=== PATIENT | female | born 1940 | race Caucasian/White ===

== ENCOUNTER 2022-03-17 14:41 | Outpatient (CLI) | payer MEDICARE, BC, SELFPAY ==
[2022-03-17 14:40] LABS: Chloride* 103 mmol/L (96-114); Potassium* 4.2 mmol/L (3.6-5.1); Sodium* 138 mmol/L (135-149)
[2022-03-17 14:43] LABS: Blood Urea Nitrogen* 21 mg/dL (7-30); Calcium* 9.6 mg/dL (8.4-10.6); Carbon Dioxide* 28 mmol/L (20-32); Creatinine* 0.6 mg/dL (0.5-1.5); Estimated Glomerular Filt Rate 91 ml/min; Glucose* 112 mg/dL (60-115)
[2022-03-19 17:13] LABS: Cholesterol* 173 mg/dL (90-199)
[2022-03-19 17:14] LABS: HDL Cholesterol* 48 mg/dL (>=50); LDL Cholesterol Calculated 111 mg/dL (<100); Triglycerides* 72 mg/dL (40-149)
== END 2022-03-17 14:42 | disposition home or self-care (01) ==
PROVIDERS: PCP Internal Medicine; Visit Provider Internal Medicine
DX: I10 Essential (primary) hypertension (principal); E78.5 Hyperlipidemia, unspecified; E66.9 Obesity, unspecified; R73.03 Prediabetes
CPT/HCPCS: 80048; 80061

== ENCOUNTER 2022-07-02 14:53 | Outpatient (CLI) | payer MEDICARE, SELFPAY ==
--- NOTE | 2022-07-02 15:20 | CRLHL7_ITS ---
For Patients: As a result of the Cures Act, medical imaging exams and procedure reports are released immediately into your electronic medical record. You may view this report before your referring provider. If you have questions, please contact your health care provider. BILATERAL SCREENING MAMMOGRAM WITH COMPUTER-AIDED DETECTION AND TOMOSYNTHESIS TECHNIQUE: CC and MLO views were obtained. These mammographic images have been obtained using full-field digital technique. These mammographic images were interpreted with the benefit of computer-aided detection. Breast Tomosynthesis was used in this interpretation. COMPARISON FILM: 05/13/21; 04/19/20; 04/17/19. FINDINGS: There are scattered areas of fibroglandular density. IMPRESSION: There is no radiographic evidence for malignancy. ASSESSMENT: BI-RADS Category 1: Negative RECOMMENDATION: Routine screening mammogram in 1 year. A lay language report of this examination will be provided to the patient. Pawan Urbano M.D. Diagnostic Radiologist [email or web address] Transcribed: 12:33 p.m. PT/Dictated by: Pawan Urbano MD @ 07/03/2022 8:27:00 AM (Electronically Signed)
== END 2022-07-02 14:54 | disposition home or self-care (01) ==
LOC: MAMMO 14:56
PROVIDERS: PCP Internal Medicine; Visit Provider Internal Medicine
DX: Z12.31 Encounter for screening mammogram for malignant neoplasm of breast (principal)
CPT/HCPCS: 77063; 77067

== ENCOUNTER 2022-08-07 09:22 | Outpatient (RCR) | payer MEDICARE, SELFPAY | END 2023-02-03 23:59 | disposition home or self-care (01) | LOC: CCIC 09:22 | PROVIDERS: PCP Internal Medicine; Visit Provider Nurse Practitioner Family | DX: C50.912 Malignant neoplasm of unspecified site of left female breast (principal); Z17.0 Estrogen receptor positive status [ER+] | CPT/HCPCS: 99212; 99213 ==

== ENCOUNTER 2022-11-23 09:06 | Outpatient (CLI) | payer MEDICARE, SELFPAY | END 2022-11-23 09:07 | disposition home or self-care (01) | LOC: NFLDREF 11-24 11:00 | PROVIDERS: PCP Internal Medicine; Referring Provider Internal Medicine; Visit Provider Internal Medicine | DX: E78.5 Hyperlipidemia, unspecified (principal) | CPT/HCPCS: 80061 ==

== ENCOUNTER 2023-03-25 15:12 | Outpatient (CLI) | payer MEDICARE, SELFPAY | END 2023-03-25 15:13 | disposition home or self-care (01) | PROVIDERS: PCP Internal Medicine; Visit Provider Internal Medicine | DX: I10 Essential (primary) hypertension (principal); E78.5 Hyperlipidemia, unspecified; R73.03 Prediabetes | CPT/HCPCS: 80048; 80061 ==

== ENCOUNTER 2023-07-07 14:38 | Outpatient (CLI) | payer MEDICARE, SELFPAY ==
--- NOTE | 2023-07-07 15:00 | MM_ITS ---
Patient: ADRIAN KANG Facility:?[facility] Patient ID:?[id number] Site Patient ID:?[id number]. Site :?[id number] Study:?XRay-Breast Bilateral 3D W/CAD-07/07/2023 3:31:06 PM Ordering Physician:Isabel Quispe Final Report: BILATERAL SCREENING MAMMOGRAM WITH COMPUTER-AIDED DETECTION AND TOMOSYNTHESIS TECHNIQUE: CC and MLO views were obtained. These mammographic images have been obtained using full-field digital technique. These mammographic images were interpreted with the benefit of computer-aided detection. Breast Tomosynthesis was used in this interpretation. COMPARISON FILM: 07/02/22, 05/13/21, 04/19/20. FINDINGS: There are scattered areas of fibroglandular density. IMPRESSION: There is no radiographic evidence for malignancy. ASSESSMENT: BI-RADS Category 2: Benign RECOMMENDATION: Routine screening mammogram in 1 year. A lay language report of this examination will be provided to the patient. Miguel Angel Paulino M.D. Diagnostic/Nuclear Medicine Radiologist [email or web address] NELDA/sana R& Transcribed: 2:41 pm SP/Dictated by: Miguel Angel Paulino MD @ 07/08/2023 10:43:00 AM Signed by:iKka Paulino MD @07/08/2023 3:31:37 PM (Electronic Signature)
== END 2023-07-07 14:39 | disposition home or self-care (01) ==
LOC: MAMMO 14:39
PROVIDERS: PCP Internal Medicine; Visit Provider Internal Medicine
DX: Z12.31 Encounter for screening mammogram for malignant neoplasm of breast (principal)
CPT/HCPCS: 77063; 77067

== ENCOUNTER 2023-08-30 14:11 | Outpatient (RCR) | payer MEDICARE, SELFPAY | END 2024-02-26 23:59 | disposition home or self-care (01) | LOC: CCIC 14:11 | PROVIDERS: PCP Internal Medicine; Visit Provider Physician Assistant | DX: C50.912 Malignant neoplasm of unspecified site of left female breast (principal); Z17.0 Estrogen receptor positive status [ER+]; I35.0 Nonrheumatic aortic (valve) stenosis; F03.90 Unspecified dementia, unspecified severity, without behavioral disturbance, psychotic disturbance, mood disturbance, and anxiety | CPT/HCPCS: 99214; G0463 ==

== ENCOUNTER 2023-12-03 10:27 | Emergency (ER) | payer MEDICARE, SELFPAY ==
[2023-12-03 10:29] VITALS: BP 151/88; PULSE 78; RESP 16; TEMP 36.5; O2SAT 96; BMI 26.2
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
[2023-12-03] MEDS: LIDOCAINE 1% MDV 3 ML INJECTION (10:45)
[2023-12-03] MEDS: TETANUS/DIPHTH/PERTUSSIS 0.5 ML SYRINGE IM (11:09)
[2023-12-03 11:33] VITALS: BP 153/90; PULSE 70; RESP 16; O2SAT 96
== END 2023-12-03 11:34 | disposition home or self-care (01) ==
LOC: ED 11:10
PROVIDERS: Emergency Provider Family Medicine; PCP Internal Medicine
DX: S01.81XA Laceration without foreign body of other part of head, initial encounter (principal); W22.8XXA Striking against or struck by other objects, initial encounter; Z23 Encounter for immunization
CPT/HCPCS: 12001; 90471; 90715; 99283

== ENCOUNTER 2024-03-27 11:42 | Outpatient (CLI) | payer MEDICARE, SELFPAY ==
--- OUTSIDE RECORDS SUMMARY | 2024-03-27 11:46 | XMS_ITS | Referral Summary ---
Author Organization [facility] Address [address] [place] [address] Care Team Providers Care Orthodontic Laboratory Technician Name Role Phone Elsewhere, Pcp Primary Care Provider Unavailabl e Source Comments Patient records contain information from all sites at [facility]. For routine questions regarding patient records, call [phone] during business hours, M-F 8:00 AM - 5:00 PM Central Time. Record requests for emergency care only can be directed to [phone] at any time.[facility] Encounters Date Type Department Care Team Description 01/31/2024 Refill Department of Neurology in [place], [place] [address] [place] [address] Erin Rahman M.D. Med Refill from Last 3 Months Allergies Active Allergy Reactions Criticality Noted Date Comments Haloperidol Other (see comments) 12/02/2020 Patient has possible Lewy body disease Pravastatin Myalgia Medium 06/14/2001 PN: LW Reaction: myalgias Simvastatin Myalgia Medium 11/15/2008 PN: LW Reaction: myalgias Uzdtnti-Xhl-Old Reductase Inhibitors Myalgia Medium 07/22/2018 Medications * This document contains information received from the source organization and may not represent a complete record from that organization. cholecalciferol (VITAMIN D3) 2,000 Unit tablet Take 1 tablet by mouth daily. 1 Active ascorbic acid, vitamin C, (VITAMIN C) 1,000 mg tablet Take 1 tablet by mouth daily. 5 Active naproxen sod/diphenhydra mine (ALEVE PM ORAL) Take 1 tablet by mouth at bedtime as needed. Active ezetimibe (ZETIA) 10 mg tablet Take 5 mg by mouth daily. 1 Active UNABLE TO FIND Take 4 each by mouth daily. Focus Factor Capsule. Active triamterene-hyd roCHLOROthiazid e (DYAZIDE) 37.5-25 mg per capsule Take 1 capsule by mouth daily. Active MAGNESIUM GLYCINATE ORAL Take 400 mg by mouth 3 (three) times a day. With K2 Active glucosamine/msm /chondrt/C/hyal (GLUCOSAMINE-CH ONDROITIN-MSM ORAL) Take 1 tablet by mouth daily. Active vitamin E 180 mg (400 Unit) capsule Take 180 mg by mouth daily. Active vit C/E/Zn/coppr/john tein/zeaxan (PRESERVISION AREDS-2 ORAL) Take 2 tablets by mouth daily. Active acetylcysteine 600 mg tablet Take 1 tablet by mouth daily. N-acetylcystei ne Active donepeziL (Aricept) 10 mg tablet TAKE ONE TABLET BY MOUTH IN THE MORNING BEFORE BREAKFAST 90 tablet 4 Active Active Problems Problem Noted Date Diagnosed Date Regurgitation Aortic 07/16/2022 Hyperlipidemia On Treatment 07/16/2022 Bicuspid Aortic Valve 07/16/2021 Stenosis Aortic Valve Acquired 07/16/2021 Assessment & Plan (07/16/2021 11:55 AM JIG HAND): Mrs. Yuen continues to do well clinically and on echocardiogram. She is very physically active and denies any cardiac symptoms today. I reviewed her test results with her and her in detail. Her aortic valve stenosis continues to be moderate with an unchanged gradient of 25 mmHg and valve area 1.16 cm2. She has mild aortic valve regurgitation. We will plan to see her back in 1 year with repeat testing or sooner if anything changes. She was educated on reasons to contact us in the interim. Aneurysm Aortic Ascending Without Rupture 2021 Assessment & Plan (07/16/2021 11:51 AM JIG HAND): Ascending aortic aneurysm is stable in diameter at 50 mm, unchanged from a year ago. She continues to avoid Valsalva activities. Her blood pressure is under good control. We will plan to see her back in 1 year with repeat echo for continued monitoring. 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 No 11/18/2023 Humiliation, Afraid, Rape, and Kick questionnair e Answer Date Recorded Within the last year, have y ou been afraid of your partner or ex-partner? No 09/11/2021 Within the last year, have y ou been humiliated or emotionally abused in other ways by your partner or ex-partner? No Within the last year, have y ou been kicked, hit, slapped, or otherwise physically hurt by your partner or ex-partner? No 09/11/2021 Within the last year, have y ou been raped or forced to have any kind of sexual activity by your partner or ex-partner? No 09/11/2021 Social Connection and Isolat ion Panel [NHANES] Answer Date Recorded In a typical week, how many times do you talk on the phone with family, friends, or neighbors? Twice a week 09/11/2021 How often do you get togethe r with friends or relatives? Never 09/11/2021 How often do you attend chur ch or catholic services? More than 4 times per year 09/11/2021 Do you belong to any clubs o r organizations such as orthodox groups, unions, fraternal or athletic groups, or school groups? Yes 09/11/2021 How often do you attend meet ings of the clubs or organizations you belong to? More than 4 times per year 09/11/2021 Are you , , di vorced, , never , or living with a partner? 09/11/2021 AUDIT-C Answer Date Recorded Q1: How often do you have a drink containing alcohol? 4 or more times a week 09/11/2021 Q2: How many drinks containi ng alcohol do you have on a typical day when you are drinking? 1 or 2 2 Q3: How often do you have si x or more drinks on one occasion? Never 09/11/2021 Overall Financial Resource Strain (CARDIA) Answe r Date Recorded How hard is it for you to pa y for the very basics like food, housing, medical care, and heating? Not hard at all 09/11/2021 [facility] - Occupational Stress Questionnaire Answer Date Recorded Do you feel stress - tense, restless, nervous, or anxious, or unable to sleep at night because your mind is troubled all the time - these days? To some extent 09/11/2021 Exercise Vital Sign Answer Date Recorde d On average, how many days pe r week do you engage in moderate to strenuous exercise (like a brisk walk)? 3 days 11/15/2023 On average, how many minutes do you engage in exercise at this level? 40 min 11/15/2023 Hunger Vital Sign Answer Date Recorded Within the past 12 months, y ou worried that your food would run out before you got the money to buy more. Never true 11/18/19 24 Within the past 12 months, t he food you bought just didn't last and you didn't have money to get more. Never true 11/18/2023 PRAPARE - Transportation Answer Date Re corded In the past 12 months, has l ack of transportation kept you from medical appointments or from getting medications? No 08/2023 In the past 12 months, has l ack of transportation kept you from meetings, work, or from getting things needed for daily living? No 11/18/2023 Nutrition Answer Date Recorded On average, how many serving s of fruits and vegetables do you eat per day (serving size is equal to 1 cup or approximately the size of a tennis ball)? 3-5 11/15/2023 Dental Answer Date Recorded Dental: Regular Dentist Yes 07/28/19 21 Employment Answer Date Recorded Employment status Retired 11/15/2023 Housing Stability Answer Date Recorded What is your living situation today? I have a [facility] [place] place to live 11/18/2023 Education Answer Date Recorded What is the highest level of school you have completed or the highest degree you have received? 12th grade 04/18/2019 Comments Unknown Sex and Gender Information Value Date Recorded Sex Assigned at Female 07/22/2018 9:33 AM JIG HAND Legal Sex Female 9:14 PM JIG HAND Gender Identity Female 07/22/2018 9:33 AM JIG HAND Sexual Orientation Straight 07/22/2018 9: 33 AM JIG HAND Last Filed Vital Signs Vital Sign Reading Time Taken Comments Blood Pressure 138/75 11/23/2023 10:04 AM CDT Pulse 60 11/23/2023 10:04 AM CDT Temperature 36.3 ??C (97.3 ??F) 09/15/2021 12:53 PM C DT Respiratory Rate - - Oxygen Saturation - - Inhaled Oxygen Concentration - - Weight 67.6 kg (149 lb 0.5 oz) 11/23/2023 10:04 AM CDT Height 158.2 cm (5' 2.28) 11/23/2023 10:04 AM C DT Body Mass Index 27.01 11/23/2023 10:04 AM CDT Plan of Treatment Not on file Medical Devices Implanted Type Area Pharmacy Technician Assistant Device Identifier Shelf Expiration Date Model / Serial / Lot Conversions - Default Historical Implant Device Implanted:03/21 (Quantity not on file) Knee Implant Bilatera l: Knee Description:Device Status Te xt - Knee Imp. both knees. Ocular Lens Ocular Lens Bilatera l: Eye Procedures Procedure Name Priority Date/Time Associated Diagnosis Comments SODIUM, S/P Routine 11/17/2023 9:34 AM CDT Stenosis Aortic Valve Acquired Hypertension Essential Primary Aneurysm Aortic Ascending Without Rupture (HCC) Bicuspid Aortic Valve (HCC) Regurgitation Aortic Hyperlipidemia POTASSIUM, S/P Routine 11/17/2023 9:34 AM CDT Stenosis Aortic Valve Acquired Hypertension Essential Primary Aneurysm Aortic Ascending Without Rupture (HCC) Bicuspid Aortic Valve (HCC) Regurgitation Aortic Hyperlipidemia CREATININE WITH EGFR, S/P Routine 11/17/2023 9:34 AM CDT Stenosis Aortic Valve Acquired Hypertension Essential Primary Aneurysm Aortic Ascending Without Rupture (HCC) Bicuspid Aortic Valve (HCC) Regurgitation Aortic Hyperlipidemia from Last 3 Months or Most Recently Relevant to Health Maintenance Results * Sodium (11/17/2023 9:34 AM CDT) Sodium, S 142 135 - 145 mmol/L 11/17/2023 10:48 AM CDT DTL Blood (Blood, Venous) 11/17/2023 9:34 AM CDT 11/17/2023 10:15 AM CDT Mari Mayo APRN, C.N.P., D.N.P. LAB BLOO D ADD-ON Final Result Performing Organization Address City/[facility]/[place] [address], [place] [address] * Potassium (11/17/2023 9:34 AM CDT) Potassium, S 4.0 3.6 - 5.2 mmol/L 11/17/2023 10:48 AM CDT DTL Blood (Blood, Venous) 11/17/2023 9:34 AM CDT 11/17/2023 10:15 AM CDT Mari Mayo APRN, C.N.P., D.N.P. LAB BLOO D [place] [address], [place] [address] * Creatinine with Estimated GFR (11/17/2023 9:34 AM CDT) Creatinine 0.80 0.59 - 1.04 mg/dL 11/17/2023 10:48 AM CDT DTL Estimated GFR (eGFR) 74 >=60 mL/min/BSA 11/17/2023 10:48 AM CDT DTL Comment: Estimated GFR calculated using the 2020 CKD_EPI creatinine equation. Blood (Blood, Venous) 11/17/2023 9:34 AM CDT 11/17/2023 10:15 AM CDT Mari Mayo APRN, C.N.P., D.N.P. LAB BLOO D ADD-ON Final Result [facility] [address] [place] [address], [place] DTL [facility] [address] [place] [address] from Last 3 Months or Most Recently Relevant to Health Maintenance Insurance [facility] Advance Directives For more information, please contact: [phone] Documents on File Type Date Recorded Patient Railway Head Tender Expl anation Advance Directives 07/16/2021 12:06 PM Pawan Sexton HCPOA/ADVOCATE/AGENT/REP RESENTATIVE/SURROGATE Healthcare Agents on File Name Relationship Healthcare Agent Relationshi p Communication Pawan Yuen Spouse Health Care Agent Robin Sexton Unknown First Alternate Health Care Agent Care Teams Orthodontic Laboratory Technician Relationship Specialty Start Date End Date Elsewhere, Pcp PCP - General Internal Medicine 09/12/21
--- OUTSIDE RECORDS SUMMARY | 2024-03-27 11:46 | XMS_ITS | Clinical Summary ---
Author Organization [facility] Address [address] [place] [address] Care Team Providers Care Cook Railroad Name Role Phone Elsewhere, Pcp Primary Care Provider Unavailabl e Source Comments Patient records contain information from all sites at [facility]. For routine questions regarding patient records, call [phone] during business hours, M-F 8:00 AM - 5:00 PM Central Time. Record requests for emergency care only can be directed to [phone] at any time.[facility] Allergies Active Allergy Reactions Criticality Noted Date Comments Haloperidol Other (see comments) 12/02/2020 Patient has possible Lewy body disease Pravastatin Myalgia Medium 06/14/2001 PN: LW Reaction: myalgias Simvastatin Myalgia Medium 11/15/2008 PN: LW Reaction: myalgias Axjdspb-Onv-Hfl Reductase Inhibitors Myalgia Medium 07/22/2018 Medications * [...] 07/16/2021 Assessment & Plan (07/16/2021 11:55 AM SURVEYOR MINE): Mrs. Yuen continues to do well clinically [...] 2021 Assessment & Plan (07/16/2021 11:51 AM SURVEYOR MINE): Ascending aortic aneurysm is stable in diameter [...] from 06/21/2018:Stage IA(pT1a, pN0, cM0, G2, ER+, [place]+, HER2-) - Unsigned Encounters Date Type Department Care Team Description 01/31/2024 Refill Department of Neurology in [place], [place] [address] [place] [address] Erin Rahman M.D. Med Refill from Last 3 Months Social History Tobacco Use Types Packs/Day Years Used Date Smoking Tobacco: Former Cigarettes 0 10/21/1959 - 04/10/1986 Smokeless Tobacco: Never Comments:Quit in 1984 Alcohol Use Standard Drinks/Week Comments Yes 14 (1 standard drink = 0.6 oz pu re alcohol) [facility] Utilities Answer Date Recorded In the past 12 months has e [employer], gas, oil, or water [employer] threatened to shut off services in your [...] often do you attend chur ch or adventism services? More than 4 times per year 09/11/2021 Do you belong to any clubs o r organizations such as gnosticism groups, unions, fraternal or athletic groups, or [...] and heating? Not hard at all 09/11/2021 [facility] - Occupational Stress [...] Sex Assigned at Female 07/22/2018 9:33 AM SURVEYOR MINE Legal Sex Female 9:14 PM SURVEYOR MINE Gender Identity Female 07/22/2018 9:33 AM SURVEYOR MINE Sexual Orientation Straight 07/22/2018 9: 33 AM SURVEYOR MINE Last Filed Vital Signs Vital Sign Reading [...] 11/23/2023 10:04 AM CDT Plan of Treatment Health Maintenance Due Date Last Done Comments IPV Vaccines (2 of 3 - Adult catch-up series) 10/13/2000 09/15/2000 RSV vaccine - (32-3 6 weeks) or 60+ years (1 - 1-dose 75+ series) 2017 COVID-19 Vaccine (2023-2 5 season) 2024 03/25/2023, 03/03/2022, 12/16/2021, Additional history exists Influenza Vaccine (#1) 2024 0, 01/25/2009, 02/15/2008, Additional history exists Creatinine Level (Kidney Fun ction Test) 11/16/2024 11/17/2023, 07/16/2022, 07/01/2020, Additional history exists Potassium Level 11/16/2024 11/17/2023, 3, 07/01/2020, Additional history exists Sodium Level 11/16/2024 11/17/2023, 030 06/2022, 07/01/2020, Additional history exists Office Visit for Blood Press ure Check / Re-check 11/22/2024 11/23/2023 DTaP,Tdap,and Td Vaccines (3 - Td or Tdap) 12/02/2033 12/03/2023, 09/02/2012, 07/27/2002, Additional history exists Colonoscopy Discontinued 05/19/2010 (Perf ormed elsewhere) Colorectal Cancer Surveillance Discontinued Pneumococcal vaccine (65+ years) Completed 06/21/19, 04/19/2008 Zoster Vaccines Completed 12/06/2018, 09/14, 12/10/2008 Fall Risk Screen (Annual) Completed 11/23/2023 CT Colonography Discontinued Cologuard Discontinued Medical Devices Implanted Type Area Manager Database Device Identifier Shelf Expiration Date Model / [...] 9:34 AM CDT 11/17/2023 10:15 AM CDT us Mari Mayo APRN, C.N.P., D.N.P. LAB BLOO D ADD-ON Final Result Performing Organization Address City/[facility] Co de Phone Number [facility] [address] [place] [address] * Potassium (11/17/2023 9:34 AM CDT) Potassium, S 4.0 3.6 - 5.2 mmol/L 11/17/2023 10:48 AM CDT DTL Blood (Blood, Venous) 11/17/2023 9:34 AM CDT 11/17/2023 10:15 AM CDT Mari Mayo APRN, C.N.P., D.N.P. LAB BLOO D ADD-ON Final Result Performing Organization Address [facility] Co de Phone Number [facility] [address] [place] [address] * Creatinine with Estimated GFR (11/17/2023 9:34 AM CDT) Creatinine 0.80 0.59 - 1.04 mg/dL 11/17/2023 10:48 AM CDT DTL Estimated GFR (eGFR) 74 >=60 mL/min/BSA 11/17/2023 10:48 AM CDT DTL Comment: Estimated GFR calculated using the 2020 CKD_EPI creatinine equation. Blood (Blood, Venous) 11/17/2023 9:34 AM CDT 11/17/2023 10:15 AM CDT us Mari Mayo APRN, C.N.P., D.N.P. LAB BLOO D ADD-ON Final Result [facility] [address] [place] [address], [place] DTL [facility] [address] [place] [address] from Last 3 Months or Most Recently Relevant to Health Maintenance Insurance A[employer] Advance Directives For more information, please contact: [phone] Documents on File Type Date Recorded Patient Credit Card Interviewer Expl anation Advance Directives 07/16/2021 12:06 PM Pawan Sexton HCPOA/ADVOCATE/AGENT/REP RESENTATIVE/SURROGATE Healthcare Agents on File Name Relationship Healthcare Agent Relationshi p Communication Pawan uYen Spouse Health Care Agent Robin Sexton Unknown First Alternate Health Care Agent Care Teams Cook Railroad Relationship Specialty Start Date End Date Elsewhere, Pcp PCP - General Internal Medicine 09/12/21
--- OUTSIDE RECORDS SUMMARY | 2024-03-27 11:46 | XMS_ITS | Encounter Summary ---
Author Organization [facility] Address [address] [place] [address] Care Team Providers Care Tankage Supervisor Name Role Phone Elsewhere, Pcp Primary Care Provider Unavailabl e Reason for Visit * Reason Comments Med Refill Encounter Details Date Type Department Care Team (Late st Contact Info) Description 01/31/2024 Refill Department of Neurology in [place], [place] [address] [place] [address] Erin Rahman M.D. [address] [place] [address] Med Refill Social History Tobacco Use Types Packs/Day Years Used Date Smoking Tobacco: Former Cigarettes 0 10/21/1959 - 04/10/1986 Smokeless Tobacco: Never Comments:Quit in 1984 Alcohol Use Standard Drinks/Week Comments Yes 14 (1 standard drink = 0.6 oz pu re alcohol) [facility] Utilities Answer Date Recorded In the past 12 months has [facility] [employer], gas, oil, or water [employer] threatened to shut off services in your [...] 09/11/2021 How often do you attend chur or scientology services? More than 4 times per year 09/11/2021 Do you belong to any clubs o r organizations such as buddhism groups, unions, fraternal or athletic groups, or [...] and heating? Not hard at all 09/11/2021 [facility] Occupat ional Health - Occupational Stress [...] Date Recorded Dental: Regular Dentist Yes 07/28/19 Employment Answer Date Recorded Employment status Retired 11/15/2023 Housing Stability Answer Date Recorded What is your living situation today? I have a [facility] place to live 11/18/2023 Education Answer Date Recorded What is the highest level of school you have completed or the highest degree you have received? 12th grade 04/18/2019 Comments Unknown Sex and Gender Information Value Date Recorded Sex Assigned at Female 07/22/2018 9:33 AM PSYCHOLOGY INSTRUCTOR Legal Sex Female 9:14 PM PSYCHOLOGY INSTRUCTOR Gender Identity Female 07/22/2018 9:33 AM PSYCHOLOGY INSTRUCTOR Sexual Orientation Straight 07/22/2018 9: 33 AM PSYCHOLOGY INSTRUCTOR documented as of this encounter Plan of Treatment Not on file documented as of this encounter Visit Diagnoses Not on filedocumented in this encounter Care Teams Tankage Supervisor Relationship Specialty Start Date End Date Elsewhere, Pcp PCP - General Internal Medicine 09/12/21 documented as of this encounter
--- OUTSIDE RECORDS SUMMARY | 2024-03-27 11:46 | XMS_ITS ---
Author Organization [facility] Address [address] [place] [address] Care Team Providers Care Diagnostics Tech Name Role Phone Elsewhere, Pcp Primary Care Provider Unavailabl e Active Problems * This document contains information received from the source organization and may not represent a complete record from that organization. Problem Noted Date Diagnosed Date Regurgitation Aortic 07/16/2022 Hyperlipidemia On Treatment 07/16/2022 Bicuspid Aortic Valve 07/16/2021 Stenosis Aortic Valve Acquired 07/16/2021 Assessment & Plan (07/16/2021 11:55 AM DRIVING INSTRUCTOR): Mrs. Yuen continues to do well clinically [...] 2021 Assessment & Plan (07/16/2021 11:51 AM DRIVING INSTRUCTOR): Ascending aortic aneurysm is stable in diameter at 50 mm, unchanged from a year ago. She continues to avoid Valsalva activities. Her blood pressure is under good control. We will plan to see her back in 1 year with repeat echo for continued monitoring. Loss Memory Short Term 04/18/2019 Hypertension Essential Primary 04/18/2019 Snoring 04/18/2019 Anxiety 04/18/2019 Current Oncology Plans No current plan information found. Past Plans No past plan information found. 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
--- OUTSIDE RECORDS SUMMARY | 2024-03-27 11:46 | XMS_ITS ---
Author Organization [facility] Address [address] [place] [address] Care Team Providers Care Wet Pan Mixer Name Role Phone Unavailable Unavailable Unavailable Surgery Details Not on file Complications Check Surgery Details section. Procedure Estimated Blood Loss Check Surgery Details section. Procedure Findings Check Surgery Details section. Procedure Specimens Taken Check Surgery Details section.
== END 2024-03-27 11:43 | disposition home or self-care (01) ==
PROVIDERS: PCP Internal Medicine; Visit Provider Internal Medicine
DX: R73.03 Prediabetes (principal); E66.9 Obesity, unspecified; E78.5 Hyperlipidemia, unspecified; I10 Essential (primary) hypertension; Z86.73 Personal history of transient ischemic attack (TIA), and cerebral infarction without residual deficits
CPT/HCPCS: 80048; 80061

== ENCOUNTER 2024-07-10 14:26 | Outpatient (CLI) | payer MEDICARE, SELFPAY ==
--- NOTE | 2024-07-10 14:40 | CRLHL7_ITS ---
For Patients: As a result of the Century Cures Act, medical imaging exams and procedure reports are released immediately into your electronic medical record. You may view this report before your referring provider. If you have questions, please contact your health care provider. BILATERAL SCREENING MAMMOGRAM WITH COMPUTER-AIDED DETECTION AND TOMOSYNTHESIS TECHNIQUE: CC and MLO views were obtained. These mammographic images have been obtained using full-field digital technique. These mammographic images were interpreted with the benefit of computer-aided detection. Breast Tomosynthesis was used in this interpretation. COMPARISON FILM: 07/07/23, 07/02/22, 05/13/21. FINDINGS: The breasts are heterogeneously dense, which may obscure small masses. IMPRESSION: There is no radiographic evidence for malignancy. ASSESSMENT: BI-RADS Category 2: Benign RECOMMENDATION: Routine screening mammogram in 1 year. A lay language report of this examination will be provided to the patient. Pawan Urbano M.D. Diagnostic Radiologist [email or web address] SP/Dictated by: Pawan Urbano MD @ 07/12/2024 12:31:00 PM (Electronically Signed)
== END 2024-07-10 14:27 | disposition home or self-care (01) ==
LOC: MAMMO 14:26
PROVIDERS: PCP Internal Medicine; Visit Provider Internal Medicine
DX: Z12.31 Encounter for screening mammogram for malignant neoplasm of breast (principal); R92.333 Mammographic heterogeneous density, bilateral breasts
CPT/HCPCS: 77063; 77067

== ENCOUNTER 2024-11-07 11:00 | Outpatient (RCR) | payer MEDICARE, SELFPAY ==
--- NOTE | 2024-07-26 10:19 | PT.OPE ---
PT [place] Outpatient Eval [facility] Outpatient Eval Start: 07/26/24 07:24 Freq: Status: Active Protocol: Document 07/26/24 07:24 ARR (Rec: 07/26/24 10:13 ARR [id number]) E-signed By Pam Maguire DPT Physical Therapy Outpatient Evaluation Insurance Information Recert Due Date 10/24/24 Insurance Name Medicare B,Blue Cross/Blue Shield Medical Diagnosis K56.41 fecal impaction Obstructive defecation Treating Diagnosis K59.00 Constipation, unspecified Fecal incontinence R15 Referring MD Isabel Price MD ([facility]) Subjective Subjective -Subjective: Symptoms ongoing maybe x 1 year. Has had a lot of different testing. Woke up at 3am this morning. Knew she had to be at PT this morning so kept trying to go and go to the bathroom prior to visit. Normally gets up at 5:30-6am. To get rid of stool : sits on the toilet a few minutes pushing and straining, picks up legs kicks them to try to get stool out. Doesn?t do this when not at home and can have problems. Got scared due to a bad episode in June and reduced eating. Gets a lot of anxiety when having to go out and about. Doesn?t have bowel leakage everyday. Spends a lot of time to prevent problems. Can feel some stomach cramping /pain when bowels Exercises 3x/wk -Bowel: --Frequency: unsure --[place] chart: very thin pencil stools. Not able to rate on [place] chart. Will feel better after having a blow out ? will feel like it actually empty. This can be more of a loose/liquid stool. --Constipation: yes --Do you feel bowels fully evacuate with BM: no --Fecal leakage: not daily, unsure how often --Fecal urgency: unsure --Straining with BM: yes --Pain with BM: unsure --Flatus incontinence: NA --Abdominal/rectal pain or symptoms: cramping in belly --Do foods increase or decrease symptoms: yes but can ?t tell --Do you take bowel supplements: stopped Metamucil ? notes MD told her to not take it. Not currently --Supplements: taking protein with probiotics, collagen peptides for skin concerns --Hydration: water 10 oz with collage and protein, some sip Objective Other/Pertinent Objective minimal gait abnormalities noted Seated posture no LOB, slight increased forward flexion/ slouching Assessment Assessment/Impression Pt is a 84 y/o female who presents with concerns of constipation and fecal incontinence. Full subjective/ history is difficult due to pt 's dementia. Pt's , Pawan also present to assist with history details. Initial session focused on subejctive gathering to establish full history and education/plan going forward. Frequent repetition assisted pt comprehension in addition to visual handouts. Signs and symptoms likely indicating / consistent with elevated PFM tension - this was also noted on pt medical testing she had completed. Indicated obstructed defecation. Full internal assessment to be completed at next session as able. Patient is a good candidate for skilled therapy to target deficits described above. Skilled PT intervention is necessary for use of therapeutic exercise manual therapy, neuromuscular re- education, gait training, and therapeutic activity. Functional impairments include difficulty with: fecal incontinence and fear of going out in public. See appropriate sections of PT eval for complete list of goals and POC. D/C plan and criteria is for pt to achieve the goals as listed below or until max rehab potential is met. Pt was agreeable with plan of care and goals established. Evaluation and internal vaginal PFM assessment/ treatment with patient consent was requested and obtained. Plan of Care Physical Therapy Goals STG (within 6 visits ) 1) Pt will initiate HEP focused on mobility and deep breathing using visual/verbal cues as indicated to facilitate comprehension 2) Pt will initiate belly big/ belly hard technique for defecation using handouts for reminders to improve ability to defecate without straining. 3) Pt will report at least 30% improvement in bowel symptoms since start of therapy for improved confidence for running errands with spouse LTG (within 12 visits) 1) Pt will demonstrate modified independence with HEP using spouse and handouts to facilitate comprehension 2) Pt will report at least 60% improvement in bowel symptoms since start of therapy for improved confidence for running errands with spouse 3) Pt will report bowel movement at least 3-4 on [place] chart to improve ability to empty 4) Pt will report ability to use belly big belly hard method to defecate consistently without pushing to reduce strain on pelvic floor 5) Pt will demonstrate ability to contract, relax, and bear down into pelvic floor with cues to faciltiate defecation on at least 6/8 reps 6) Pt will report resolved bowel incontinence on at least 12/14 days Treatment Plan/Direct Interventions Gait Training,Joint Mobilization,Manual Therapy, Neuromuscular Re-ed,Self-Care/ Home Management,Therapeutic Activities,Therapeutic Exercises Frequency/Duration 1x/wk x 12 visits within 90 days Patient Will Be Discharged From Therapy Skills [facility],Independent w/ HEP Evaluation Billing Untimed Code Treatment Minutes 30 Complexity Moderate Certification Information Initial Certification Date 07/26/24 Ending Certification Date 10/24/24 Provider Signature Required Yes Provider Signature Shows Agreement With POC & Medical Necessity Physician NPI Number Write NPI# Here Physician Comment/Change : Physician Signature & Date Requested Please Sign/Date Here
--- NOTE | 2024-09-27 09:47 | PT.OPDN ---
[facility] Daily [facility] Start: 07/26/24 07:24 Freq: Status: Active Protocol: Document 09/27/24 07:29 ARR (Rec: 09/27/24 09:47 ARR [email or web address]) E-signed By NICKIE CheungT PT OP Daily Progress Note Visit Information Note Type Daily Note,Recert/Progress Note Visit Number [id number] Insurance Information Recert Due Date 12/26/24 Insurance Name Medicare B,Blue Cross/[employer] Insurance Information/Comments POC 1 x 12 EVAL 07/26 - 09/27/24 // 09/28/24 - ? Medical Diagnosis K56.41 fecal impaction Obstructive defecation Treating Diagnosis K59.00 Constipation, unspecified Fecal incontinence R15 Referring MD Isabel Price MD ([facility]) Subjective Subjective -Is cancelling next week likely due to company coming. Is very nervous to not having an appt. -Continues to do stretches with spouse. -Went to bed at 930pm, spouse had to wake her up to come to session today. -Yesterday was a different day . Could tell nothing was working on stomach, knows that when this happens something is stuck. Will digitally remove, had to do this yesterday. Has done this occasionally for years. This technique helped. Knew there was a backup. After this was liquid stool. -Does metamucil daily. -Sometimes doesn't eat breakfast until the afternoon due to busy schedule. Will do yogurt at least and take it in the car. -Eats a lot of fruit and vegetables during the day. -Continues to do abdominal massage -Collagen helps with reducing redness on skin Home Exercise Home Exercise Comments OTHER: -Goals, graph for fluid input 07/26 Access Code: [email or web address] URL: [email or web address] Date: 08/30/2024 Prepared by: Pam Maguire Exercises - Supine Abdominal Wall Massage - 1 x daily - 7 x weekly - 3-5 min hold - mobility exercise type - Supine Lower Trunk Rotation - 1 x daily - 7 x weekly - 4- 5 reps - mobility exercise type - Supine Figure 4 Piriformis Stretch - 1 x daily - 7 x weekly - 2 reps - 45 sec hold - mobility exercise type - Supine Single Knee to Chest Stretch - 1 x daily - 7 x weekly - 2 reps - 30 sec hold - mobility exercise type Objective Other/Pertinent Objective RECTAL INTERNAL EXAM 08/30: -Sensation: intact to touch -Gaping: yes -Tension/scar: WNL -Skin integrity: WNL but do note stool around maxi-anal area. -Lifting contraction: nil -Substitution patterns: glut squeeze -Bulge: nil with compensatory glut squeeze -Hemhorroids: none Strength -Power (MMT): 0 Patient Instructed in Risks/Benefits Yes Therapeutic Exercise Therapeutic Exercise Minutes (minutes) 10 Therapeutic Exercise: To Restore TE: Indicated for improvement Functional Status in strengthening and mobility. -Handouts with written instructions and photographs of exercises were issued to the patient for exercises to be included in HEP. Answered patient questions regarding POC, and mobility/stretches to perform if pain occurs -Supine upper trunk with upper rotation of trunk 2 x 5 reps. practice also with spouse with pt consent Self Care Management Training Self-Care Activity Minutes (minutes) 45 Self Care Management Training Goals discussed below extensively: 09/27/24 GOALS: 1) Drink 60 ounces of water daily ? spread throughout the day, sipping not gulping. 2) Continue 2 tsp Metamucil back into your diet 3) Every 2 hours RELAX your buttocks (your butt should NOT be tight or tense) 4) Poop routine: a. Eat breakfast b. Do exercises (see handout) c. Sit on toilet no more than 8-10 minutes. i. Sit on toilet like woman below. ii. RELAX YOUR BUTTOCKS ? YOUR BUTT SHOULD NOT FEEL TIGHT iii. Breathe in through your nose DOWN and OUT through your mouth (blow out candles) push poop out. 5) Consider adding in a probiotic (see picture on Jennifer?s phone for recommendation / talk to your provider). Keep using the powder you are already doing ( Collagen powder from [employer]). Education/discussion: -Current plan of care and goals with continued PT Treatment Minutes Timed Code Treatment Minutes 55 Total Treatment Time 55 Billing Units Self-Care Activity Units 3 Therapeutic Exercise Units 1 Assessment/Impression Assessment/Impression Pt noting better week without any blowouts or bowel incontinence. Does continue to note having liquid stools and having had x 1 instance of needing digital evacuation of stool. Focus this date on pt education for goals as above, pt to increase water intake in addition to discussing with provider/consider use of probiotic to improve gut health. Also progressed HEP with TS mobility/deep breathing. Plan of Care Physical Therapy Goals STG (within 6 visits ) 1) Pt will initiate HEP focused on mobility and deep breathing using visual/verbal cues as indicated to facilitate comprehension - MET 2) Pt will initiate belly big/ belly hard technique for defecation using handouts for reminders to improve ability to defecate without straining. - PROGRESSING TOWARD, WILL CONTINUE TO NEED INTERMITTENT CUES 3) Pt will report at least 30% improvement in bowel symptoms since start of therapy for improved confidence for running errands with spouse - PROGRESSING TOWARD LTG (within 12 visits) 1) Pt will demonstrate modified independence with HEP using spouse and handouts to facilitate comprehension - UNMET 2) Pt will report at least 60% improvement in bowel symptoms since start of therapy for improved confidence for running errands with spouse - UNMET 3) Pt will report bowel movement at least 3-4 on [place] chart to improve ability to empty - UNMET 4) Pt will report ability to use belly big belly hard method to defecate consistently without pushing to reduce strain on pelvic floor - PROGRESSING TOWARD 5) Pt will demonstrate ability to contract, relax, and bear down into pelvic floor with cues to faciltiate defecation on at least 6/8 reps - PROGRESSING GOWARD WITH BETTER ACCURACY 6) Pt will report resolved bowel incontinence on at least 12/14 days - PROGRESSING TOWARD Daily Plan of Care Comments -Balloon next visit to assess for relaxing tone of PFM rectally -Consider: Mg Citrate, probiotic, fiber increasing ( consider prunes) -Increase water and add in more fiber -Consider returning to rectal treatment for relaxation of PFM. STM into abdominal wall to promote GI motility Recertification Information Initial Certification Date 07/26/24 Recertification Start Date 09/28/24 Recertification Due Date 12/26/24 Reasons to Continue Skilled Therapy 10th visit note: Pt had been seen for constipation, fecal incontinence for 8 visits from 07/26/24 to 09/27/24 during this episode of physical therapy and during most recent plan of care. F Focus of therapy on hip/spine ROM, deep breathing, PF lengthening. Treatment also included extensive education optimizing bowel and bladder health for symptom reduction/mgmt and strategies to reduce constipation including hydration, fiber, bowel routine. Interventions including ther exercise, manual therapy, self-care, neuromuscular re-education. 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 Continued skilled PT is indicated at this time as maximal therapeutic improvement has not yet been reached. Pt to benefit from ongoing therapy at a reduced frequency of every other wk x 6 visits within 90 days. Greater time btw visits is indicated to facilitate greater indep mgmt and to allow for more time for bowels to change. Pt also has h/o dementia which does make progress in therapy slow due to frequent repetition that is indicated for recall/full comprehension. Pt agreeable with this plan. Goal progress is noted above. Rehabilitation Potential Good to achieve goals but also limited based on cognition. Spouse is very supportive Continued Plan of Care and Interventions See above Provider Signature Shows Agreement With POC & Medical Necessity Physician Comment/Change Comment or Changes Physician NPI Number #
== END 2025-02-27 08:31 | disposition home or self-care (01) ==
PROVIDERS: PCP Internal Medicine; Visit Provider Internal Medicine
DX: K56.41 Fecal impaction (principal); Z51.89 Encounter for other specified aftercare
CPT/HCPCS: 97110; 97112; 97140; 97162; 97535